=== PATIENT | female | born 1980 | race African-American/Black ===

== ENCOUNTER 2016-07-25 09:37 | Emergency (ER) | payer OTHER ==
[~2016-07-25] VITALS: Ht 167.6 cm; Wt 63.5 kg
[~2016-07-25 09:37] MED LIST: MECL25CH PO
[2016-07-25 09:38] VITALS: BP 126/77; PULSE 95; RESP 20; TEMP 98.5; O2SAT 100
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
[2016-07-25] MEDS ORDERED: IBUP800T23 PO (09:56)
[2016-07-25] MEDS ORDERED: CYCL5TAB PO (09:56)
== END 2016-07-25 10:00 | disposition home or self-care (01) ==
LOC: NEPK 09:37
DX: T14.8 Other injury of unspecified body region (principal); V49.60XA Unspecified car occupant injured in collision with unspecified motor vehicles in traffic accident, initial encounter
CPT/HCPCS: 99283